=== PATIENT | male | born 1990 | race Caucasian/White ===

== ENCOUNTER 2017-03-05 19:16 | Emergency (ER) | payer BC ==
[2017-03-05] MEDS ORDERED: Acetaminophen 500 MG Tab PO ONE (19:31)
[2017-03-05 19:58] VITALS: BP 153/95
[2017-03-05] MEDS ORDERED: Take Home: Acetaminophen/HYDROcodone 325-10 MG, 5 Tab Pack PO ONE (20:03)
--- NOTE | 2017-03-05 20:08 | EDM.PDOC ---
ED HPI GENERAL MEDICAL PROBLEM - General Chief Complaint: Upper Extremity Injury/Pain Stated Complaint: LEFT ARM COMPLAINT Time Seen by Provider: 03/05/17 19:23 Source of Information: Reports: Patient History Limitations: Reports: No Limitations - History of Present Illness INITIAL COMMENTS - FREE TEXT/NARRATIVE: Patient presents tonight with complaints of left forearm pain. 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 It was sore last night, but even more so upon waking this AM. He did work all day, stated he took 6 aleve today with little relief. He was educated on not taking that many at once or during a 24 hour span, as well as given possible risks in doing so. He smokes, drinks beer, and chews tobacco. Is able to move and feel his hand, wrist and fingertips. He has no other complaints this evening. 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 [No Known Home Meds] 03/26/14 [History] Past Medical History - Past Health History Medical/Surgical History: Denies Medical/Surgical History Social & Family History - Tobacco Use Years of Tobacco use: 10 - Alcohol Use Days Per Week of Alcohol Use: 1 Number of Drinks Per Day: 6 Total Drinks Per Week: 6 - Recreational Drug Use Recreational Drug Use: No Review of Systems - Review of Systems Review Of Systems: See Below Constitutional: Reports: No Symptoms Eyes: Reports: No Symptoms Ears: Reports: No Symptoms Nose: Reports: No Symptoms Mouth/Throat: Reports: No Symptoms Respiratory: Reports: No Symptoms Cardiovascular: Reports: No Symptoms GI/Abdominal: Reports: No Symptoms Genitourinary: Reports: No Symptoms Musculoskeletal: Reports: Arm Pain (left forearm) Skin: Reports: No Symptoms Neurological: Reports: No Symptoms Psychiatric: Reports: No Symptoms ED EXAM, GENERAL - Physical Exam Exam: See Below Exam Limited By: No Limitations General Appearance: Alert, WD/WN, No Apparent Distress Eye Exam: Bilateral Eye: EOMI Peripheral Pulses: 2+: Radial (L), Radial (R) Extremities: Normal Inspection, Normal Capillary Refill, Limited Range of Motion (secondary to pain to left forearm/wrist) Neurological: Alert, Oriented, CN II-XII Intact, Normal Cognition, Normal Gait, Normal Reflexes, No Motor/Sensory Deficits Psychiatric: Normal Affect, Normal Mood Skin Exam: Warm, Dry, Intact, Normal Color, No Rash Lymphatic: No Adenopathy Course - Vital Signs Last Recorded V/S: Last Vital Signs Temp 37.3 C 03/05/17 19:49 Pulse 100 03/05/17 19:49 Resp 16 03/05/17 19:49 BP 153/95 H 03/05/17 19:49 Pulse Ox 96 03/05/17 19:49 - Orders/Labs/Meds Orders: Active Orders 24 hr Category Date Time Status Forearm 2V Lt [CR] Stat Exams 03/05/17 19:29 Ordered Wrist Comp Min 3V Lt [CR] Stat Exams 03/05/17 19:29 Ordered Meds: Medications Discontinued Medications Generic Name Dose Route Start Last Admin Trade Name Robertoq PRN Reason Stop Dose Admin Acetaminophen 1,000 mg 03/05/17 19:31 03/05/17 19:35 Tylenol Extra Strength PO 03/05/17 19:32 1,000 mg ONETIME ONE Administration - Radiology Interpretation Free Text/Narrative:: Review of x-rays do not reveal acute fracture. Await radiology confirmation Departure - Departure Time of Disposition: 20:20 Disposition: Home, Self-Care 01 Clinical Impression: Bone bruise - Discharge Information Instructions: Wrist Sprain Additional Instructions: Keep your wrist/forearm elevated, apply ice for 20-30 minutes at a time. Do not apply ice directly to your skin. Remove after 30 minutes. Do this every hour as you remember. Keep the haseeb wrap and immobilizer on unless showering. Keep these clean and dry. Take the pain medications as prescribed and after that you may take 1 aleve every 12 hours OR take 2 tablets once a day. You may also take 3,000mg of tylenol after you have finished the pain medications you left the ER with. Do not drive while taking the hydrocodone. Your pain should diminish in the next 3-5 days. If not, follow up with a primary doctor at the [facility] for a possible MRI referral to rule out any soft tissue damage to your tendon, ligaments, etc. Please call us with any questions or concerns. - Problem List & Annotations (1) Bone bruise SNOMED Code(s): 871811887, 517226371 Code(s): T14.8 - OTHER INJURY OF UNSPECIFIED BODY REGION Status: Acute Priority: Low Current Visit: Yes - Problem List Review Problem List Initiated/Reviewed/Updated: Yes - My Orders Last 24 Hours: My Active Orders 03/05/17 19:29 Forearm 2V Lt [CR] Stat Wrist Comp Min 3V Lt [CR] Stat - Assessment/Plan Last 24 Hours: My Active Orders 03/05/17 19:29 Forearm 2V Lt [CR] Stat Wrist Comp Min 3V Lt [CR] Stat Assessment:: radial bone bruise Plan: Keep your wrist/forearm elevated, apply ice for 20-30 minutes at a time. Do not apply ice directly to your skin. Remove after 30 minutes. Do this every hour as you remember. Keep the haseeb wrap and immobilizer on unless showering. Keep these clean and dry. Take the pain medications as prescribed and after that you may take 1 aleve every 12 hours OR take 2 tablets once a day. You may also take 3,000mg of tylenol after you have finished the pain medications you left the ER with. Do not drive while taking the hydrocodone. Your pain should diminish in the next 3-5 days. If not, follow up with a primary doctor at the [facility] for a possible MRI referral to rule out any soft tissue damage to your tendon, ligaments, etc. Please call us with any questions or concerns.
== END 2017-03-05 20:23 | disposition home or self-care (01) ==
LOC: VM.ED 19:16
DX: S50.12XA Contusion of left forearm, initial encounter (principal); W22.8XXA Striking against or struck by other objects, initial encounter
CPT/HCPCS: 73090; 73110; 99283; A9270